=== PATIENT | female | born 1995 | race Caucasian/White ===

== ENCOUNTER 2017-05-31 09:20 | Emergency (ER) | payer OTHER, MEDICAID ==
[~2017-05-31] VITALS: Ht 162.6 cm; Wt 83.9 kg
[~2017-05-31 09:20] MED LIST: BCP; CEPH500C PO; CLIN300C3 PO; DOCU100C37 PO; HYDR-3812 PO; IBUP-1773 PO; NAPR-243 PO; ONDA-42 SL; PREN1TAB71 PO; PRM25T PO
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
[2017-05-31] MEDS ORDERED: KETOROLAC 30 MG/ML VIAL IVP STA (10:11)
[2017-05-31] MEDS ORDERED: fentaNYL INJECTION 100 MCG/2 ML AMP IVP STA (10:11)
[2017-05-31] MEDS ORDERED: CYCL10TA9 PO (10:27)
[2017-05-31] MEDS ORDERED: HYDR-3812 PO (10:27)
[2017-05-31 10:46] VITALS: BP 134/90
== END 2017-05-31 10:46 | disposition home or self-care (01) ==
LOC: EDUNIT# 09:20 → ER 09:21
DX: S09.90XA Unspecified injury of head, initial encounter (principal); S16.1XXA Strain of muscle, fascia and tendon at neck level, initial encounter; S29.019A Strain of muscle and tendon of unspecified wall of thorax, initial encounter; S50.12XA Contusion of left forearm, initial encounter; Z82.49 Family history of ischemic heart disease and other diseases of the circulatory system; Z87.59 Personal history of other complications of pregnancy, childbirth and the puerperium; V43.52XA Car driver injured in collision with other type car in traffic accident, initial encounter
CPT/HCPCS: 70450; 72125; 72128; 73090; 96374; 96375; 99283

== ENCOUNTER → 2017-10-30 | Outpatient (CLI) | payer OTHER, MEDICAID ==
[~2017-10-30] MED LIST changes: +ACHD5005 PO; +CYCL10TA9 PO; -HYDR-3812 PO
== END ==
LOC: LABNPT 18:21
PROVIDERS: ATTEND Nurse Practitioner Family
DX: N30.01 Acute cystitis with hematuria (principal)
CPT/HCPCS: 87088; 87186

== ENCOUNTER → 2020-05-07 | Outpatient (CLI) | payer BC, MEDICAID ==
--- NOTE | 2020-05-07 15:41 | Diagnostic Imaging Report ---
PROCEDURE: US Thyroid. TECHNIQUE: Multiple real-time grayscale images were obtained of the thyroid in various projections. INDICATION: Bilateral thyroid cysts. COMPARISON: No prior studies are available for comparison. Right lobe of the thyroid measures 4.9 x 1.3 x 1.6 cm and the left lobe measures 5.0 x 1.4 x 0.9 cm. Isthmus is 3 mm in thickness. Both lobes demonstrate subcentimeter circumscribed hypoechoic nodules. Nodules in the right lobe lower pole approximately 6 mm in size. Nodules on the left are approximately 4 mm and 7 mm. No dominant thyroid mass is detected. IMPRESSION: Subcentimeter hypoechoic nodules bilateral thyroid lobes. Follow-up could be obtained in 6 months to confirm stability. Dictated by: Dictated on workstation # [id number]
== END ==
LOC: RAD 13:54
PROVIDERS: ATTEND Otolaryngology Otolaryngology/Facial Plastic Surgery
DX: E04.2 Nontoxic multinodular goiter (principal)
CPT/HCPCS: 76536

== ENCOUNTER → 2020-08-21 | Outpatient (CLI) | payer BC, MEDICAID ==
--- NOTE | 2020-08-21 10:34 | Diagnostic Imaging Report ---
EXAMINATION: Ultrasound soft tissue unlisted. INDICATION: Palpable mass of the left lower back. COMPARISON: There are no prior ultrasound examinations available for comparison. By history, the patient has a palpable abnormality in the lower back on the left. FINDINGS: On the ultrasound examination of the area of concern, there is a 5.3 x 2.9 x 2.4 cm fairly well-circumscribed avascular heterogeneous hypoechoic lesion. This is of uncertain etiology but could represent a lipoma. It would be unlikely in a patient of this age that this is neoplastic in nature. If further imaging is desired, then either CT or MRI would be recommended. If the MRI or CT exams are not performed, then a short-term (4-6 week) followup ultrasound exam should be considered for further evaluation. No other abnormality is identified. IMPRESSION: There is a 5.3 x 3.9 x 2.4 cm fairly well-circumscribed avascular heterogeneous hypoechoic mass in the area of the patient's palpable abnormality. Considerations and recommendations as above. Dictated by: Dictated on workstation # [id number]
== END ==
LOC: RAD 09:49
DX: R22.2 Localized swelling, mass and lump, trunk (principal)
CPT/HCPCS: 76999

== ENCOUNTER → 2020-08-29 | Outpatient (CLI) | payer BC, MEDICAID ==
--- NOTE | 2020-08-29 08:29 | Diagnostic Imaging Report ---
EXAMINATION: CT Abdomen Pelvis without contrast. TECHNIQUE: Multiple contiguous axial images were obtained through the abdomen and pelvis without the use of intravenous contrast. All CT scans use one or more of the following dose optimizing techniques: automated exposure control, MA and/or KvP adjustment based on a patient size and exam type, or iterative reconstruction. HISTORY: Left lower back mass COMPARISON: None available. FINDINGS: Limited views of the lower thorax are unremarkable. The liver is normal without focal lesion. There is no biliary ductal dilation. Gallbladder is normal. Pancreas is normal. Spleen is normal. Adrenal glands are normal. The kidneys are normal. There is no hydronephrosis. Urinary bladder is normal. Comparison ovaries are normal for age. Visualized bowel is normal in caliber without obstruction or inflammation. The appendix is normal. No free fluid or air. No abdominal or pelvic lymphadenopathy. Aorta is normal in caliber without aneurysm. There are no suspicious osseus lesions. A BB was placed in the back near the palpable area of abnormality. There is normal underlying fat and a small amount of subcutaneous edema. No suspicious mass is seen. IMPRESSION: 1. No mass seen at site of palpable abnormality. There is normal fat and a small amount of subcutaneous edema. Dictated by: Dictated on workstation # [id number]
== END ==
LOC: RAD 08:15
PROVIDERS: ATTEND Nurse Practitioner Family
DX: R19.04 Left lower quadrant abdominal swelling, mass and lump (principal)
CPT/HCPCS: 74176

== ENCOUNTER → 2022-01-13 | Outpatient (CLI) | payer BC, MEDICAID ==
[~2022-01-13] MED LIST changes: +CYCL10TA25 PO; -CYCL10TA9 PO
--- NOTE | 2022-01-13 12:24 | Diagnostic Imaging Report ---
INDICATION: Right knee pain. TIME OF EXAM: 10:44 AM 3 views of the right knee were obtained. Alignment is normal. Joint spaces are well maintained. The articular surfaces are smooth. No fracture, dislocation or effusion is seen. IMPRESSION: No acute bony abnormality is detected. Dictated by: Dictated on workstation # [id number]
== END ==
LOC: RAD 10:27
PROVIDERS: ATTEND Nurse Practitioner Family
DX: M25.561 Pain in right knee (principal)
CPT/HCPCS: 73562

== ENCOUNTER → 2022-05-18 | Outpatient (CLI) | payer BC, MEDICAID ==
--- NOTE | 2022-05-18 13:29 | Diagnostic Imaging Report ---
PROCEDURE: US Thyroid. TECHNIQUE: Multiple Real-time grayscale images were obtained of the thyroid in various projections. INDICATION: Followup of thyroid cyst. COMPARISON: 05/07/2020. FINDINGS: The right lobe measures 5 x 1.2 x 1 cm. There are two anechoic cysts present measuring approximately 5 mm. No calcification. The left lobe measures 5 x 1.5 x 1.3 cm. The isthmus is 2 mm. IMPRESSION: Anechoic cystic structures with no appreciable change in the right lobe measuring less than 1 cm. TI-RADS 2 Dictated by: Dictated on workstation # [id number]
== END ==
LOC: RAD 11:15
PROVIDERS: ATTEND Otolaryngology Otolaryngology/Facial Plastic Surgery
DX: E04.1 Nontoxic single thyroid nodule (principal)
CPT/HCPCS: 76536

== ENCOUNTER 2023-09-20 18:17 | Emergency (ER) | payer BC, MEDICAID ==
[~2023-09-20] VITALS: Ht 162.5 cm; Wt 81.6 kg
--- NOTE | 2023-09-20 18:41 | ED Chest Pain ---
General Chief Complaint: Chest Pain Stated Complaint: CHEST PAIN Nursing Triage Note: PT AMB TO [facility] 3 WITH COMPLAINT OF LEFT SIDE CHEST PAIN THAT STARTED YESTERDAY. DESRIBES PAIN A HEAVINESS. STATES BP HAS BEEN INCREASED. Source: patient Exam Limitations: no limitations History of Present Illness Date Seen by Provider: Sep 20, 2023 Time Seen by Provider: 18:38 Initial Comments Patient is a 28-year-old female with a history of hypertension, smoking who presents to ED with left-sided chest pain that started 3 days ago. Pain appears to be intermittent. She cannot relate the pain to certain activities. Located left-sided chest described as sharp and radiates to the back and left arm. Pain started again 2 hours ago while sitting at home. Rates pain 4 out of 10. Associated shortness of breath with numbness and tingling and pain of left arm. She states it feels like the left arm feels cool. She denies any recent travels or surgeries. Not on control. She states her primary thought this was secondary to panic attacks but she is starting to experience this pain more frequently. She denies of any vomiting, diarrhea, headache, recent travels or surgeries, leg swelling, visual changes. She denies taking anything for pain. Allergies and Home Medications Allergies Coded Allergies: red dye (Verified Allergy, Unknown, 04/14/15) Patient Home Medication List Home Medication List Reviewed: Yes Cyclobenzaprine HCl (Cyclobenzaprine HCl) 10 Mg Tablet, 10 MG PO Q8H PRN for SPASMS Prescribed by: CÉSAR BUTT on 05/31/17 1027 Docusate Sodium (Docusate Sodium) 100 Mg Capsule, 100 MG PO BID Prescribed by: POLLO EDWARD on 09/23/15 0812 Hydrocodone Bit/Acetaminophen (Lortab 5 Mg Tablet) 1 Each Tablet, 1-2 TAB PO Q4H PRN for PAIN Prescribed by: POLLO EDWARD on 09/23/15 0812 Hydrocodone Bit/Acetaminophen (Lortab 5 Mg Tablet) 1 Each Tablet, 1-2 EACH PO Q6H PRN for PAIN-MODERATE Prescribed by: CÉSAR BUTT on 05/31/17 1027 Ibuprofen (Ibuprofen) 600 Mg Tablet, 600 MG PO Q6H PRN for PAIN Prescribed by: POLLO EDWARD on 09/23/15 0812 Vit/Fe Fumarate/Fa ( Vitamin Tablet) 1 Each Tablet, 1 EACH PO DAILY, (Reported) Entered as Reported by: LAZARO FOSTER on 02/09/15 5626 Review of Systems Review of Systems Constitutional: No chills, No diaphoresis, No fever, No malaise, No weakness EENTM: No Blurred Vision, No Double Vision Respiratory: Denies Cough, Denies Orthopnea; Shortness of Air Cardiovascular: Chest Pain; Denies Edema Gastrointestinal: Denies Abdominal Pain, Denies Nausea, Denies Vomiting Genitourinary: Denies Burning, Denies Discharge, Denies Drainage, Denies Frequency Musculoskeletal: No back pain, No joint pain Skin: No change in color, No change in hair/nails All Other Systems Reviewed Negative Unless Noted: Yes Past Obfpcsy-[id number]-Khfirx Hx Patient Social History Tobacco Use?: No Use of E-Cig and/or Vaping dev: Yes E-Cig or Vaping type used: Nicotine, Marijuana Substance use?: Yes Substance type: Marijuana Alcohol Use?: Yes Alcohol Frequency: Once in a while Pt feels they are or have been: No Immunizations Up To Date Tetanus Booster (TDap): Unknown Seasonal Allergies Seasonal Allergies: No Past Medical History Surgeries: Yes Section Respiratory: No Cardiac: No Neurological: No Reproductive Disorders: No Sexually Transmitted Disease: No HIV/AIDS: No Gastrointestinal: No Musculoskeletal: No Endocrine: No Cancer: No Psychosocial: No Integumentary: No Blood Disorders: No Adverse Reaction/Blood Tranf: No Family Medical History Arthritis 19 MOTHER Cardiovascular disease 19 MOTHER Completed stroke 19 MOTHER Diabetes mellitus 19 MOTHER Hypertension 19 MOTHER GRANDPARENTS No Pertinent Family Hx Physical Exam Vital Signs Vital Signs - First Documented 09/20/23 18:29 Pulse 98 Resp 16 B/P (MAP) 154/98 (116) Pulse Ox 100 O2 Delivery Room Air Capillary Refill : Less Than 3 Seconds Height, Weight, BMI Height: 5'4.00" Weight: 185lbs. oz. 83.739515ol; 30.00 BMI Method:Stated General Appearance: No Apparent Distress, WD/WN HEENT: PERRL/EOMI, TMs Normal, Normal ENT Inspection, Pharynx Normal Neck: Full Range of Motion, Normal Inspection, Non Tender, Supple Respiratory: Chest Non Tender, Lungs Clear, Normal Breath Sounds, No Accessory Muscle Use, No Respiratory Distress Cardiovascular: Regular Rate, Rhythm, No Edema, No Gallop, No JVD, No Murmur Gastrointestinal: Normal Bowel Sounds, No Organomegaly, No Pulsatile Mass, Non Tender Extremity: Normal Capillary Refill, Normal Inspection, Normal Range of Motion Neurologic/Psychiatric: Alert, Oriented x3, No Motor/Sensory Deficits, Normal 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, 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 Norm as Tested Skin: Normal Color, Warm/Dry Progress/Results/Core Measures Results/Orders Lab Results Laboratory Tests Test 09/20/23 18:35 09/20/23 18:44 09/20/23 20:26 Range/Units White Blood Count 8.4 4.3-11.0 10^3/uL Red Blood Count 4.91 3.80-5.11 10^6/uL Hemoglobin 15.3 11.5-16.0 g/dL Hematocrit 45 35-52 % Mean Corpuscular Volume 91 80-99 fL Mean Corpuscular Hemoglobin 31 25-34 pg Mean Corpuscular Hemoglobin Concent 34 32-36 g/dL Red Cell Distribution Width 12.2 10.0-14.5 % Platelet Count 270 130-400 10^3/uL Mean Platelet Volume 10.4 9.0-12.2 fL Immature Granulocyte % (Auto) 0 % Neutrophils (%) (Auto) 64 42-75 % Lymphocytes (%) (Auto) 29 12-44 % Monocytes (%) (Auto) 5 0-12 % Eosinophils (%) (Auto) 1 0-10 % Basophils (%) (Auto) 1 0-10 % Neutrophils # (Auto) 5.4 1.8-7.8 10^3/uL Lymphocytes # (Auto) 2.4 1.0-4.0 10^3/uL Monocytes # (Auto) 0.4 0.0-1.0 10^3/uL Eosinophils # (Auto) 0.1 0.0-0.3 10^3/uL Basophils # (Auto) 0.0 0.0-0.1 10^3/uL Immature Granulocyte # (Auto) 0.0 0.0-0.1 10^3/uL Prothrombin Time 13.3 12.2-14.7 SEC INR Comment 1.0 0.8-1.4 Activated Partial Thromboplast Time 27 24-35 SEC D-Dimer < 0.27 0.00-0.49 UG/ML Sodium Level 137 135-145 MMOL/L Potassium Level 3.2 L 3.6-5.0 MMOL/L Chloride Level 104 98-107 MMOL/L Carbon Dioxide Level 25 21-32 MMOL/L Anion Gap 8 5-14 MMOL/L Blood Urea Nitrogen 6 L 7-18 MG/DL Creatinine 0.80 0.60-1.30 MG/DL Estimat Glomerular Filtration Rate 102 BUN/Creatinine Ratio 8 Glucose Level 118 H 70-105 MG/DL Calcium Level 9.2 8.5-10.1 MG/DL Corrected Calcium 9.0 8.5-10.1 MG/DL Magnesium Level 2.2 1.6-2.4 MG/DL Total Bilirubin 1.2 H 0.1-1.0 MG/DL Aspartate Amino Transf (AST/SGOT) 13 5-34 U/L Alanine Aminotransferase (ALT/SGPT) 9 0-55 U/L Alkaline Phosphatase 61 40-136 U/L Myoglobin 29.7 10.0-92.0 NG/ML Troponin I < 0.028 < 0.028 <0.028 NG/ML B-Type Natriuretic Peptide < 10.0 <100.0 PG/ML Total Protein 7.3 6.4-8.2 GM/DL Albumin 4.2 3.2-4.5 GM/DL Lipase 34 8-78 U/L Thyroid Stimulating Hormone (TSH) 0.39 0.35-4.94 UIU/ML My Orders Orders - LAURA MCCRACKEN PA Ekg Tracing (09/20/23 18:18) Cbc And Automated Diff (09/20/23 18:37) Magnesium (09/20/23 18:37) Chest 1 View, Ap/Pa Only (09/20/23 18:37) Ekg Tracing (09/20/23 18:37) Comprehensive Metabolic Panel (09/20/23 18:37) Myoglobin Serum (09/20/23 18:37) Protime With Inr (09/20/23 18:37) Partial Thromboplastin Time (09/20/23 18:37) O2 (09/20/23 18:37) Monitor-Rhythm Ecg Trace Only (09/20/23 18:37) Ed Iv/Invasive Line Start (09/20/23 18:37) Lipase (11/20/23 18:37) Bnp Claudia (09/20/23 18:37) Fibrin Degradation Products (09/20/23 18:37) Troponin I Claudia (09/20/23 18:37) Ketorolac Injection (Ketorolac Injection (09/20/23 18:45) Thyroid Stimulating Hormone (09/20/23 18:41) Troponin I Claudia (09/20/23 20:20) Medications Given in ED Vital Signs/I&O 09/20/23 09/20/23 18:29 21:13 Pulse 98 93 Resp 16 16 B/P (MAP) 154/98 (116) 145/101 Pulse Ox 100 100 O2 Delivery Room Air Room Air Blood Pressure Mean: 116 Comment Sinus tachycardia, 102 bpm, QRS duration 91 MS, QTc 389 MS. Departure Communication (PCP) Patient is a 28-year-old female history of hypertension presents ED with left- sided chest pain and heart palpitations. Differential diagnosis arrhythmia, electrolyte abnormality, pericarditis, pleurisy, costochondritis, metabolic disorder. Strong family cardiac history. No known cardiac history herself. No recent travels or surgeries leg pain. Denies of any flulike symptoms. Patient blood pressure 154/98. Heart rate in 98. Cardiac workup was initiated. She w as requesting something for pain. Did give her Toradol initially. Heart score of 2 secondary to family cardiac, hypertension, smoking. She states she had family members with a NC in the 40 years of age. She states she feels like her heart is skipping beats. EKG was obtained which did show sinus rhythm with sinus arrhythmia. Slightly tachycardic. No evidence of ST elevation or depression, a flutter or A-fib. No SVT. Continue ECG monitoring. She did receive Toradol initially for pain. CBC, CMP was gross unremarkable. Normal troponin and BNP. Normal D-dimer. Normal TSH. She did have a potassium of 3.2. Chest x-ray was negative for pneumonia, pneumothorax, mediastinal widening. Patient's symptoms did improve during her stay. She did have an epis ode where she felt some fluttering but appeared to have a sinus arrhythmia on ECG. Did perform a delta troponin 2 hours out which was negative. . She did remain fairly asymptomatic during her stay. Due to reassuring cardiac workup without any concerning EKG changes will recommend outpatient cardiac follow-up. Did discuss avoid any caffeine or any type of stimulants. If any worsening chest pain or shortness of breath is strongly recommend returning back to the ED. Patient agrees with plan of action. Impression Primary Impression: Chest pain Disposition: 01 HOME, SELF-CARE Condition: Stable Departure-Patient Inst. Decision time for Depature: 21:01 Referrals: AFRICA ROBERTSON MD, JACQUELINE S DO (PCP/Family) Primary Care Physician Patient Instructions: Chest Pain (DC) Add. Discharge Instructions: Continue monitoring symptoms. Recommend following up with cardiology for further evaluation. If any worsening symptoms return back to ED. All discharge instructions reviewed with patient and/or family. Voiced understanding. LAURA MCCRACKEN Sep 20, 2023 18:40
[2023-09-20 18:45] LABS: BASOPHILS % (AUTO) 1 % (0-10); EOSINOPHILS # (AUTO) 0.1 10^3/uL (0.0-0.3); EOSINOPHILS % (AUTO) 1 % (0-10); HEMATOCRIT 45 % (35-52); HEMOGLOBIN 15.3 g/dL (11.5-16.0); LYMPHOCYTES # (AUTO) 2.4 10^3/uL (1.0-4.0); LYMPHOCYTES % (AUTO) 29 % (12-44); MEAN CORPUSCULAR HEMOGLOBIN 31 pg (25-34); MEAN CORPUSCULAR HGB CONC 34 g/dL (32-36); MEAN CORPUSCULAR VOLUME 91 fL (80-99); MEAN PLATELET VOLUME 10.4 fL (9.0-12.2); MONOCYTES # (AUTO) 0.4 10^3/uL (0.0-1.0); MONOCYTES % (AUTO) 5 % (0-12); NEUTROPHILS # (AUTO) 5.4 10^3/uL (1.8-7.8); NEUTROPHILS % (AUTO) 64 % (42-75); PLATELET COUNT 270 10^3/uL (130-400); WHITE BLOOD COUNT 8.4 10^3/uL (4.3-11.0)
[2023-09-20] MEDS ORDERED: KETOROLAC INJ 30 MG/ML VIAL IVP ONE (18:45)
[2023-09-20 18:55] LABS: ALBUMIN 4.2 GM/DL (3.2-4.5); CHLORIDE 104 MMOL/L (98-107); POTASSIUM 3.2 MMOL/L (3.6-5.0); SODIUM 137 MMOL/L (135-145)
[2023-09-20 18:56] LABS: CALCIUM 9.2 MG/DL (8.5-10.1)
[2023-09-20 18:58] LABS: GLUCOSE 118 MG/DL (70-105); TOTAL PROTEIN 7.3 GM/DL (6.4-8.2)
[2023-09-20 18:59] LABS: BILIRUBIN,TOTAL 1.2 MG/DL (0.1-1.0); CARBON DIOXIDE 25 MMOL/L (21-32); PARTIAL THROMBOPLASTIN TIME 27 SEC (24-35); PROTHROMBIN TIME PATIENT 13.3 SEC (12.2-14.7)
[2023-09-20 19:01] LABS: ALKALINE PHOSPHATASE 61 U/L (40-136); GFR ESTIMATED 102
[2023-09-20 19:02] LABS: BUN/CREATININE RATIO 8
--- NOTE | 2023-09-20 19:03 | Diagnostic Imaging Report ---
INDICATION: Chest pain and shortness of breath. COMPARISONS: None FINDINGS: Single view of the chest shows the cardiac contour to be within normal limits. The right heart border is slightly obscured. There is some minimal bibasilar atelectatic infiltrates but no confluent consolidations. There is no effusion or pneumothorax. Soft tissues and bony thorax are unremarkable. IMPRESSION: Some minimal basilar and right middle lobe atelectatic type infiltrates but no confluent consolidations. Short-term follow-up with clinical correlation with departmental PA and lateral films would be of further value. Dictated by: Dictated on workstation # [id number]
[2023-09-20 19:04] LABS: ALANINE AMINOTRANSFERASE 9 U/L (0-55); MAGNESIUM 2.2 MG/DL (1.6-2.4)
[2023-09-20 19:05] LABS: LIPASE 34 U/L (8-78)
[2023-09-20 20:15] LABS: FIBRIN DEGRADATION PRODUCTS < 0.27 UG/ML (0.00-0.49)
[2023-09-20 21:13] VITALS: BP 145/101
== END 2023-09-20 21:12 | disposition home or self-care (01) ==
LOC: EDUNIT# 18:17 → ER 18:20
DX: R07.89 Other chest pain (principal); R00.2 Palpitations; F17.290 Nicotine dependence, other tobacco product, uncomplicated; Z82.49 Family history of ischemic heart disease and other diseases of the circulatory system
CPT/HCPCS: 36415; 71045; 80053; 83690; 83735; 83874; 83880; 84443; 84484; 85025; 85379; 85610; 85730; 93005; 93041